=== PATIENT | male | born 1965 | race Caucasian/White ===

== ENCOUNTER → 2023-08-03 07:15 | Outpatient (REF) | payer OTHER, SELFPAY | LOC: DHCBS MAIN 07:15 | PROVIDERS: ATTENDING PHYSICIAN Internal Medicine Cardiovascular Disease; FAMILY PHYSICIAN Internal Medicine | DX: I48.0 Paroxysmal atrial fibrillation (principal) | CPT/HCPCS: 93306 ==

== ENCOUNTER 2023-10-09 12:48 | Emergency (ER) | payer OTHER, SELFPAY ==
[2023-10-09 12:48] VITALS: BMI 30.3
[2023-10-09 12:57] VITALS: BP 151/111
[2023-10-09 13:31] LABS: % Basophils 0.6 % (0-2); % Eosinophils 1.1 % (0-6); % Immature Granulocytes 0.4 % (0-0.5); % Monocytes 6.9 % (1.7-9.3); Absolute Eosinophils 0.1 10^3/uL (0-0.7); Absolute Lymphocytes 1.3 10^3/uL (1.2-3.4); Absolute Monocytes 0.3 10^3/uL (0.1-0.6); Hematocrit 44.8 % (39.0-52.0); Hemoglobin 16.2 g/dL (13.0-18.0); Mean Corp Hgb Conc. 36.2 g/dL (33.0-37.0); Mean Corpuscular Hgb 29.3 pg (27.0-31.0); Mean Platelet Volume 10.2 fL (7.4-10.4); Nucleated Red Blood Cells % 0 % (-); Platelet Count 229 10^3/uL (130-400); Red Blood Cell Count 5.53 10^6/uL (4.70-6.10); Red Cell Dist. Width 12.2 % (11.5-14.5); White Blood Cell Count 4.6 10^3/uL (4.8-10.8)
[2023-10-09 13:56] LABS: ALT (SGPT) 11 U/L (0-50); AST (SGOT) 32 U/L (17-59); Albumin 4.9 g/dl (3.5-5.0); Alkaline Phosphatase 37 U/L (38-126); Blood Urea Nitrogen 16 mg/dl (9-20); Calcium 9.4 mg/dl (8.4-10.2); Carbon Dioxide 26 mmol/L (22-30); Chloride 104 mmol/L (98-107); Estimated Creatinine Clearance 98 ml/min; Glucose 99 mg/dl (70-99); Potassium 4.7 mmol/L (3.5-5.1); Sodium 140 mmol/L (135-145); Total Bilirubin 1.1 mg/dl (0.2-1.3); Total Protein 7.3 g/dl (6.3-8.2); eGFR > 60.00
[2023-10-09 14:00] VITALS: BP 135/93
[2023-10-09 14:14] LABS: Troponin I < 0.012 ng/ml
[2023-10-09 14:16] VITALS: BP 141/99
[2023-10-09] MEDS: NSS 500 IV (15:19)
--- NOTE | 2023-10-09 15:46 | ED.GENMED ---
History of Present Illness
General
Chief Complaint: Fatigue
Source: patient
Exam Limitations: none
Time Seen by Provider: 10/09/23 14:19
Nursing documentation reviewed up to this point in time: agreed with
Travel History
Have you had any contact with someone who has COVID-19?: No
Do you have any symptoms of coronavirus? Fever > 100 degrees, chills, cough, shortness of breath, sore throat, loss of taste or smell, muscle aches, or headache?: No
History of Present Illness
History of Present Illness:
58-year-old male with history of A-fib status post ablation, frequent PVCs but normally in sinus rhythm, hypertension presents for chest pain/epigastric pain that woke him up from sleep somewhere after midnight overnight, he cannot be sure of the
time lasting about 10 minutes which felt like sharp ice pick stabbing pain followed by shortness of breath and the feeling of racing or irregular heartbeat, patient says he cannot be sure which. It all resolved ultimately without any intervention
and he has not had anything since other than only minimal pain with deep breathing. He also feels a little bit more fatigued than usual. He recently took a trip to [place] and back via air travel and was camping. Patient says that he has never
had a blood clot and denies any leg pain or swelling. He has not had been bitten by any ticks but did notice a bug bite a couple days ago to his left ankle that is healing. It was very itchy and looks better than it did. This was here in
[place] not [place]. Patient has not had any fevers, chills, nausea or vomiting, urinary symptoms, diarrhea
Past History
Past History
ED Past Medical History: Arrthythmia (A-fib status post ablation, PVCs) and HTN
ED Past Surgical History: Cardiac (Ablation)
Social History
Tobacco: Non-smoker
Alcohol: Occasional
Personal:
Living: with family
Review of Systems
Review of Systems
Allergies reviewed?: Yes
All Other Systems: Not applicable
Phy Exam
Physical Exam
Physical Exam:
GENERAL: Alert , in no apparent distress, very comfortable appearing
EYE: pupils equal and reactive
NECK: Supple
ENT: o/p clr, mmm.
CARDIAC: Regular rate and rhythm ., No edema
LUNGS: Clear breath sounds bilaterally, no acute respiratory distress, no wheezes/rales/rhonchi
ABDOMEN: Soft, without focal tenderness, no r/g, no cvat, normal bowel sounds
NEUROLOGICAL: Alert and oriented, no focal neuro deficits
SKIN: Warm and dry, skin intact. Patient has 1 small bug bite on the left ankle
MUSCULOSKELETAL: No edema, well perfused. neg declan's sign
PSYCH: Normal and appropriate interaction.
Course
Orders/Labs/Results
Orders:
Orders
10/09/23 13:02
Electrocardiogram (*1) Urgent
Reason for Study: Other
Other Reason for Exam: epigastric pain
EKG- Treatment ONCE
10/09/23 13:20
Complete Blood Count/With Diff Urgent
Comprehensive Metabolic Panel Urgent
Lipase Urgent
Comment: ADD ON
NT-proBNP Urgent
Comment: ADD ON
Troponin I Urgent
10/09/23 14:56
Add On- LAB Urgent
Tests Added?: bnp, lipase
CT Chest Pe Study Urgent
Comment:
Reason For Exam: sob, pleuritic pain,recent travel
10/09/23 15:06
0.9% Sodium Chloride 500 ml [Nss] 500 ml IV BOLUS
10/09/23 16:26
Famotidine [Pepcid] 20 mg PO NOW STA
Abnormal Lab Results
10/09/23
13:20
WBC 4.6 L 10^3/uL
(4.8-10.8)
Alkaline Phosphatase 37 L U/L
(38-126)
10/09/23 13:20
10/09/23 13:20
Vital Signs
Initial and Last Documented VS:
Initial Vital Signs
Temp Pulse Resp BP Pulse Ox
97.5 F 65 18 151/111 99
10/09/23 12:57 10/09/23 12:57 10/09/23 12:57 10/09/23 12:57 10/09/23 12:57
Last Documented Vital Signs
Temp Pulse Resp BP Pulse Ox
98.3 F 63 18 146/96 98
10/09/23 13:25 10/09/23 14:16 10/09/23 16:29 10/09/23 16:29 10/09/23 16:29
MDM/Problems Addressed
Differential Diagnosis Includes:
Pancreatitis, A-fib, PE, ACS, GERD
MDM/Problems Addressed:
58-year-old male with a history of paroxysmal A-fib status post ablation no anticoagulation, multiple PVCs frequently, drinks alcohol socially weekly several days a week presents for the feeling of sharp pain in his chest/epigastric region in the
middle of the night lasting about 10 minutes. It resolved spontaneously and he is only had discomfort with deep breathing feels a little tightness in his chest. He usually feels his PVCs and he does feel them now and they are rare to mild
currently. Just recently traveled across the country to [place] and back. Patient has never had a blood clot before. He denies that this felt like GERD symptoms.
On exam the patient has a nonischemic EKG sinus rhythm with 1 PVC and on the monitor he has an occasional PVC. His troponin was negative. His lipase is pending as well as his BNP. CT PE given his symptoms and recent risk of travel was ordered.
Pending that result I anticipate the patient should be able to go home for outpatient cardiology follow-up
pt's ct was neg
he is comfortable going [facility]
will p[dylon for prompt outpatient cards fu
return precatuions
*Critical Care Note
Total Time (30-74mins, 75-104mins- exclusive of procedures): Not Applicable
ED Attending Note
-
Portions of this chart may have been created with voice recognition software.� Occasional wrong word or��sound alike� substitutions may have occurred due to the inherent limitations of voice recognition software.
Discharge Plan
Departure
Patient Disposition: Home (Routine Discharge)
Date of Disposition: 10/09/23
Time of Disposition: 16:24
Patient with high blood pressure during this ER visit?: No
Condition: Fair
Covid-19: Not Applicable
Discharge Problem:
Chest pain
Instructions: Chest Pain DCA Follow Up
Prescriptions:
New
famotidine [Pepcid AC] 20 mg tablet
20 mg PO BID Qty: 14 0RF
No Action
losartan 100 mg Tablet
100 mg PO DAILY
hydrochlorothiazide 25 mg Tablet
25 mg PO DAILY
metoprolol succinate 25 mg Tablet Extended Release 24 Hr
12.5 mg PO DAILY
aspirin 325 mg tablet
325 mg PO DAILY Qty: 30 0RF
Rx Instructions:
Daily for 30 days post procedure, then stop
Referrals:
Leon Holly I., DO [Family Provider] - Follow up in 2-3 days
Activity Restrictions/Additional Instructions:
Were not sure the cause of your chest pain. You had negative workup today which ruled out a blood clot and heart attack. 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
It is also possible that you could have GERD, acid reflux so for this you should try Pepcid twice a day for about a week and see if this helps your symptoms. Watch what you eat and avoid acidic foods or caffeinated beverages or alcohol is much as
you can.
Certainly return if your symptoms got worse like severe sudden worsening of pain, vomiting, passing out, shortness of breath etc.
Interventions
Interventions:
*Risk Screen - Suicide Last Done: 10/09/23 13:01
*General Assessment Last Done: 10/09/23 13:01
*Neglect/Abuse Screening Last Done: 10/09/23 13:01
ED- Fall Risk Assessment Last Done: 10/09/23 13:27
*ED COVID-19 Vaccine History Last Done: 10/09/23 16:29
*Nursing Disposition Last Done: 10/09/23 16:29
ED- Cardiac Assessment Last Done: 10/09/23 13:27
Discharge Date and Time
Discharge Date/Time: 10/09/23 16:36
Print Language: KOREAN
[2023-10-09 15:59] LABS: Lipase 100 U/L (23-300)
[2023-10-09 16:07] LABS: NT-proBNP 187 pg/ml
[2023-10-09 16:29] VITALS: BP 146/96
== END 2023-10-09 16:36 | disposition home or self-care (01) ==
LOC: EMR 12:48
PROVIDERS: Emergency Medicine; EMERGENCY PHYSICIAN Emergency Medicine; FAMILY PHYSICIAN Internal Medicine
DX: R07.89 Other chest pain (principal); R10.13 Epigastric pain; R06.02 Shortness of breath; R53.83 Other fatigue; S90.562A Insect bite (nonvenomous), left ankle, initial encounter; W57.XXXA Bitten or stung by nonvenomous insect and other nonvenomous arthropods, initial encounter; I48.0 Paroxysmal atrial fibrillation; I10 Essential (primary) hypertension; F90.9 Attention-deficit hyperactivity disorder, unspecified type; M19.90 Unspecified osteoarthritis, unspecified site; Z79.82 Long term (current) use of aspirin; Z96.641 Presence of right artificial hip joint; Z87.891 Personal history of nicotine dependence
CPT/HCPCS: 99285; 71275; 80053; 83690; 83880; 84484; 85025; 93005; Q9967